=== PATIENT | male | born 1995 | race Caucasian/White ===

== ENCOUNTER → 2024-11-08 09:12 | Outpatient (CLI) | payer OTHER, SELFPAY ==
[2024-11-08 10:18] LABS: Hematocrit 42.8 % (41-53); Hemoglobin 14.2 g/dL (13.5-17.5); Mean Corpuscular HGB Conc 33.1 % (30-36); Mean Corpuscular Hemoglobin 27.6 PG (26-34); Mean Corpuscular Volume 83.5 fL (80-100); Platelet Count 284 X10^3/uL (150-400); Red Blood Cell Count 5.12 X10^6/uL (4.5-5.9); Red Cell Distribution Width 13.7 % (11.6-14.8); White Blood Cell Count 6.5 X10^3/uL (4.5-11.0)
[2024-11-08 10:29] LABS: HEMOLYSIS < 15 (0-50); Iron 63 ug/dL (49-181)
[2024-11-08 10:30] LABS: Alanine Aminotransferase 71 IU/L (<50); Albumin 4.8 g/dL (3.5-5.0); Albumin Globulin Ratio 1.7 (1.0-2.8); Alkaline Phosphatase 62 U/L (38-126); Aspartate Aminotransferase 39 IU/L (17-59); BUN Creatinine Ratio 12.1 (6-22); Bilirubin Total 0.5 mg/dL (0.2-1.3); Blood Urea Nitrogen 8 mg/dL (9-20); Calcium 9.7 mg/dL (8.4-10.2); Carbon Dioxide 25 mmol/L (22-32); Chloride 105 mmol/L (98-107); Estimated Glomerular Filt Rate > 60 mL/min (>60); Globulin 2.8 g/dL (1.7-4.1); Glucose 105 mg/dL (70-100); HEMOLYSIS < 15 (0-50); Potassium 4.8 mmol/L (3.4-5.1); Sodium 139 mmol/L (137-145); Total Protein 7.6 g/dL (6.3-8.2)
[2024-11-08 10:39] LABS: Percent Iron Saturation 19 % (20-50); Total Iron Binding Capacity 333 ug/dL (261-462); Transferrin 279 mg/dL (206-381)
[2024-11-08 11:19] LABS: Vitamin B12 Reflex MMA if <400 240 pg/mL (239-931)
[2024-11-10 20:12] LABS: Methylmalonic Acid,Serum 117 nmol/L (0-378)
== END ==
PROVIDERS: PCP Family Medicine; Referring Provider Family Medicine; Visit Provider Family Medicine
DX: Z13.0 Encounter for screening for diseases of the blood and blood-forming organs and certain disorders involving the immune mechanism (principal); R53.83 Other fatigue; Z13.21 Encounter for screening for nutritional disorder
CPT/HCPCS: 36415; 80053; 82306; 82607; 83540; 83550; 83921; 85027